=== PATIENT | female | born 1965 | race Caucasian/White ===

== ENCOUNTER 2018-06-21 13:38 | Emergency (ER) | payer SELFPAY ==
[2018-06-21 13:48] VITALS: BP 122/80; PULSE 70; TEMP 97.8; BMI 25.4
[2018-06-21] MEDS ORDERED: KETOROLAC TROMETHAMINE 15 MG/ML VIAL IM ONE (14:19)
[2018-06-21] MEDS ORDERED: KETOROLAC TROMETHAMINE 15 MG/ML VIAL ONE (14:21)
--- NOTE | 2018-06-21 14:30 | PDOC ---
History of Present Illness - General Chief Complaint: Back Pain Stated Complaint: LOWER BACK PAIN Time Seen by Provider: 06/21/18 13:53 History Source: Patient Exam Limitations: No Limitations - History of Present Illness Initial Comments: 06/21/18 14:38 53 yo F w/ a h/o lumbar arthritis comes in c/o exacerbation of her chronic low back pain for the past 2 days. It feels similar to the back pain which she has had in the past. It sometimes radiates to both legs, no numbness/tingling anywhere, no other complaints today, no saddle paresthesias, no incontinence, no h/o malignancy, no recent trauma/fall, no CP, no SOB, no abdominal pain, no fever/chills, no NVD. She took motrin at 8am which helped but she would like the injection. She does not have health insurance, therefore is unable to follow up with a PMD. Past History - Past Medical History Allergies/Adverse Reactions: Allergies Allergy/AdvReac Type Severity Reaction Status Date / Time morphine Allergy Vomiting Verified 06/21/18 13:40 Home Medications: Ambulatory Orders Docusate Sodium [Colace -] 300 mg PO DAILY #90 capsule 05/23/13 Cyclobenzaprine HCl [Flexeril -] 10 mg PO TID #21 tablet 10/18/13 Naproxen [Naprosyn -] 500 mg PO BID #14 tablet 10/18/13 Methocarbamol [Robaxin-750] 750 mg PO TID 3 Days #15 tablet 06/21/18 Naproxen [Naprosyn] 500 mg PO BID 3 Days #15 tablet 06/21/18 COPD: No - Suicide/Smoking/Psychosocial Hx Smoking History: Smoker current status UNK Hx Alcohol Use: Yes (SOCIAL) Review of Systems - Review of Systems Able to Perform ROS?: Yes Constitutional: No: Chills, Fever, Malaise, Night Sweats HEENTM: No: Eye Pain, Recent change in vision, Throat Pain Respiratory: No: Cough, Shortness of Breath Cardiac (ROS): No: Chest Pain, Palpitations, Chest Tightness ABD/GI: No: Diarrhea, Nausea, Vomiting, Abdominal cramping : No: Dysuria, Hematuria Musculoskeletal: Yes: Back Pain Integumentary: No: Rash Neurological: No: Headache, Numbness, Dizziness Psychiatric: No: Change in Appetite Endocrine: No: Unexplained Weight Loss *Physical Exam - Vital Signs Last Vital Signs Temp Pulse Resp BP Pulse Ox 97.8 F 70 16 122/80 100 06/21/18 13:43 06/21/18 13:43 06/21/18 13:43 06/21/18 13:43 06/21/18 13:43 - Physical Exam General Appearance: Yes: Nourished. No: Apparent Distress HEENT: positive: SRIKANTH, Normal ENT Inspection, Normal Voice. negative: Pale Conjunctivae, Scleral Icterus (R), Scleral Icterus (L) Neck: positive: Supple. negative: Decreased range of motion, Tender midline Respiratory/Chest: positive: Lungs Clear, Normal Breath Sounds. negative: Respiratory Distress, Accessory Muscle Use Cardiovascular: positive: Regular Rhythm, Regular Rate Gastrointestinal/Abdominal: positive: Normal Bowel Sounds, Soft. negative: Tender Musculoskeletal: positive: Normal Inspection, Other (Back without assymetry,no skin changes, no midline tenderness, bilateral diffuse low back musculoskeletal tenderness. FROM, good reflexes bilaterally, good LE pulses, FROM and 5/5 strength LEs. GOod cap refill, full sensory function, NVI). negative: CVA Tenderness, Decreased Range of Motion Extremity: positive: Normal Capillary Refill, Normal Inspection, Normal Range of Motion. negative: Tender, Pedal Edema Integumentary: positive: Normal Color, Dry. negative: Jaundice, Rash Neurologic: positive: Fully Oriented, Alert, Normal Mood/Affect Moderate Sedation - Procedure Monitoring Vital Signs: Procedure Monitoring Vital Signs Temperature 97.8 F 06/21/18 13:43 Pulse Rate 70 06/21/18 13:43 Respiratory Rate 16 06/21/18 13:43 Blood Pressure 122/80 06/21/18 13:43 O2 Sat by Pulse Oximetry (%) 100 06/21/18 13:43 ED Treatment Course - Medications Given in the ED: ED Medications Discontinued Medications Generic Name Dose Route Start Last Admin Trade Name Freq PRN Reason Stop Dose Admin Ketorolac Tromethamine 15 mg 06/21/18 14:19 06/21/18 14:24 Toradol Injection - IM 06/21/18 14:20 15 mg ONCE ONE Administration Medical Decision Making - Medical Decision Making 06/21/18 14:42 53 yo F w/ exacerbation of her low back pain, asking for toradol, NO neuro deficits. WIll not give robaxin here because she is driving, will give a prescription. Pt ambulating out of ED in NAD, without the need for assistance. Return for worsening/concerning symptoms. Pt verbalizes understanding and agrees with plan *DC/Admit/Observation/Transfer Diagnosis at time of Disposition: Back pain Qualifiers: Back pain location: low back pain Chronicity: unspecified Back pain laterality : unspecified Sciatica presence: without sciatica Qualified Code(s): M54.5 - Low back pain - Discharge Dispostion Disposition: HOME Condition at time of disposition: Stable - Prescriptions Prescriptions: Methocarbamol [Robaxin-750] 750 mg PO TID 3 Days #15 tablet Naproxen [Naprosyn] 500 mg PO BID 3 Days #15 tablet - Referrals - Patient Instructions Printed Discharge Instructions: DI for Low Back Pain Additional Instructions: DO not take Robaxin when operating any kind of machinery because it might make you drowsy. You may take it with naproxen. Return for worsening/concerning symptoms. - Post Discharge Activity
== END 2018-06-21 14:35 | disposition home or self-care (01) ==
LOC: JERFT 13:38 → JER 13:38 → JERFT 14:35
PROC: 3E0233Z Introduction of Anti-inflammatory into Muscle, Percutaneous Approach (ICD-10-PCS; principal; 2018-06-21)
DX: M54.5 Low back pain (principal)
CPT/HCPCS: 99281-25

== ENCOUNTER 2018-08-10 14:21 | Emergency (ER) | payer SELFPAY ==
[2018-08-10 14:40] VITALS: TEMP 98.2; BMI 25.4
--- NOTE | 2018-08-10 14:53 | PDOC ---
History of Present Illness - General Chief Complaint: Vaginal Bleeding Stated Complaint: VAGAINAL BLEEDING Time Seen by Provider: 08/10/18 14:51 - History of Present Illness Initial Comments: 53yo A1 with history of tubal ligation presenting with vaginal bleeding. Patient reports that her last menstrual period was at the end of last month. This vaginal bleeding corresponds with the expected start of her menstrual period. Endorses abdominal cramping which is consistent with pain she has had during menstruation in the past. Patient states she finished a course of amoxicillin yesterday which she was given after a dental procedure. No personal or family history of bleeding disorders. She states the females in her family usually experience menopause around age 55. Patient has had mood swings, but no hot flashes. Has had negative pap smears. No history of ovarian cysts or fibroids. Denies fevers or chills. PCP: none leasing sales consultant: none Past History - Past Medical History Allergies/Adverse Reactions: Allergies Allergy/AdvReac Type Severity Reaction Status Date / Time morphine Allergy Vomiting Verified 08/10/18 14:40 Home Medications: Ambulatory Orders Docusate Sodium [Colace -] 300 mg PO DAILY #90 capsule 05/23/13 Cyclobenzaprine HCl [Flexeril -] 10 mg PO TID #21 tablet 10/18/13 Naproxen [Naprosyn -] 500 mg PO BID #14 tablet 10/18/13 Methocarbamol [Robaxin-750] 750 mg PO TID 3 Days #15 tablet 06/21/18 Naproxen [Naprosyn] 500 mg PO BID 3 Days #15 tablet 06/21/18 COPD: No - Suicide/Smoking/Psychosocial Hx Smoking History: Never smoked Hx Alcohol Use: Yes (SOCIAL) Review of Systems - Review of Systems Comments:: Constitutional: no fever, no chills HEENT: no throat pain, no dysphagia Cardiovascular: no chest pain, no palpitations Respiratory: no cough, no shortness of breath Gastrointestinal: no nausea, no vomiting Genitourinary: no dysuria, +vaginal bleeding Musculoskeletal: no myalgia, no arthralgia Skin: no rash, no itching Neurologic: no headache, no weakness *Physical Exam - Vital Signs Last Vital Signs Temp Pulse Resp BP Pulse Ox 98.2 F 97 H 18 140/90 99 08/10/18 14:36 08/10/18 14:36 08/10/18 14:36 08/10/18 14:36 08/10/18 14:36 - Physical Exam Comments: General: Awake, alert, and fully oriented, in no acute distress Head: No signs of trauma Eyes: EOMI, sclera anicteric ENT: Moist mucus membranes Neck: Normal ROM, supple Lungs: Lungs clear, Normal breath sounds Cardio: Regular rhythm, S1 and S2 present Abdomen: Soft, nontender. No guarding, no rebound, no masses Extremities: Normal range of motion, Distal pulses present SKIN: Warm, Dry, normal turgor Neurologic: Cranial nerves II through XII grossly intact. Normal speech Pelvic: External genitalia without erythema, exudate or discharge. Vaginal vault is with blood. No clots or tissue noted. Cervix is of normal color without lesion. The os is closed. Uterus is noted to be of appropriate size and nontender. No cervical motion tenderness is seen. No masses are palpated. The adnexa are without masses or tenderness. ED Treatment Course - LABORATORY CBC & Chemistry Diagram: 08/10/18 16:06 Medical Decision Making - Medical Decision Making 53yo A1 with history of tubal ligation presenting with vaginal bleeding. DDX including but not limited to heavy menstruation due to hormonal changes during menopause, fibroids, vaginal trauma, malignancy CBC to check hemoglobin Ultrasound 600mg motrin for analgesia 08/10/18 15:59 CBC WBC 7.4 K/mm3 (4.0-10.0) 08/10/18 16:06 RBC 3.87 M/mm3 (3.60-5.2) 08/10/18 16:06 Hgb 11.8 GM/dL (10.7-15.3) 08/10/18 16:06 Hct 34.4 % (32.4-45.2) 08/10/18 16:06 MCV 89.0 fl (80-96) 08/10/18 16:06 MCH 30.5 pg (25.7-33.7) 08/10/18 16:06 MCHC 34.2 g/dl (32.0-36.0) 08/10/18 16:06 RDW 14.4 % (11.6-15.6) 08/10/18 16:06 Plt Count 311 K/MM3 (134-434) 08/10/18 16:06 MPV 7.9 fl (7.5-11.1) 08/10/18 16:06 Absolute Neuts (auto) 4.8 K/mm3 (1.5-8.0) 08/10/18 16:06 Neutrophils % 64.7 % (42.8-82.8) 08/10/18 16:06 Lymphocytes % 27.3 % (8-40) 08/10/18 16:06 Monocytes % 5.1 % (3.8-10.2) 08/10/18 16:06 Eosinophils % 2.3 % (0-4.5) 08/10/18 16:06 Basophils % 0.6 % (0-2.0) 08/10/18 16:06 Nucleated RBC % 0 % (0-0) 08/10/18 16:06 No anemia or leukocytosis TVUS: "Real time examination of the pelvis utilizing both the transabdominal and transvaginal probes demonstrates the following: The uterus is normal in size measuring 10.5 x 7.6 x 6.8 cm. No uterine masses are seen. A thickened endometrium of 1.5 cm is identified. A nabothian cyst is noted within the cervix. The ovaries are normal in size and texture with cysts identified bilaterally. The right ovarian cyst measures 1.9 x 1.8 x 0.9 cm. The left ovarian cyst measures 2.2 x 2.1 x 1.5 cm. There is no evidence of adnexal masses or free pelvic fluid collections. IMPRESSION: Thickened endometrium and bilateral ovarian cysts. " Fibroids not seen on ultrasound. Heavy vaginal bleeding likely due to menstruation likely affected by variable hormonal levels during this likely perimenopausal period. Patient amenable to follow-up with drill doctor referral *DC/Admit/Observation/Transfer Diagnosis at time of Disposition: Heavy menstrual bleeding Qualifiers: Menorrahagia type: with regular cycle Qualified Code(s): N92.0 - Excessive and frequent menstruation with regular cycle - Discharge Dispostion Disposition: HOME Condition at time of disposition: Stable - Referrals Referrals: [facility] [place] [facility] [place] [Provider Group] Eleazar Roberts MD [Staff Physician] - Dodie Dumont MD [Staff Physician] - Marilin Guerra DO [Staff Physician] - - Patient Instructions Printed Discharge Instructions: DI for Vaginal Bleeding Additional Instructions: You were seen in the Emergency Department for vaginal bleeding. Blood work was within normal limits. Ultrasound shows that you have cysts. Follow-up with an drill doctor this week to further workup your heavy bleeding. Beryl Castanon [address] [address] Medical: We have also referred you to a primary care provider as you do not have one right now. Return to the Emergency Department if you experience: -heavy bleeding (more than two pads per hour for two hours) -severe pain -lightheadedness -shortness of breath -high fever -any other concerning symptoms - Post Discharge Activity
[2018-08-10] MEDS ORDERED: IBUPROFEN 600 MG TABLET (FP) PO ONE ×2 (15:51→16:06)
--- NOTE | 2018-08-10 16:10 | PDOC ---
Documentation entered by Angel Jaramillo SCRIBE, acting as scribe for Theodora Herrera MD. Theodora Herrera MD: This documentation has been prepared by the premaibe, Angel Jaramillo SCRIBE, under my direction and personally reviewed by me in its entirety. I confirm that the documentation accurately reflects all work, treatment, procedures, and medical decision making performed by me. Attending Attestation - Resident Resident Name: Theodora Moseley - ED Attending Attestation I have performed the following: I have examined & evaluated the patient, The case was reviewed & discussed with the resident, I agree w/resident's findings & plan, Exceptions are as noted - HPI HPI: 08/10/18 16:32 The patient is a 53 year old female(A1) with a significant past medical history of lumbar arthritis who presents to the emergency department with vaginal bleeding for 3 days. The patient states that she experienced her lmp around the same time last month but this time the bleeding is heavier than usual. The patient states that she has used about 3 large pads today. She reports some associated abdominal pain , consistent with her period. 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 She denies any other symptoms or complaints. - Physicial Exam PE: GENERAL: Awake, alert, and fully oriented, in no acute distress HEAD: No signs of trauma EYES: PERRLA, EOMI, sclera anicteric, conjunctiva clear ENT: Auricles normal inspection, hearing grossly normal, nares patent, oropharynx clear without exudates. Moist mucosa NECK: Normal ROM, supple, no lymphadenopathy, JVD, or masses LUNGS: Breath sounds equal, clear to auscultation bilaterally. No wheezes, and no crackles HEART: Regular rate and rhythm, normal S1 and S2, no murmurs, rubs or gallops ABDOMEN: Soft, nontender, normoactive bowel sounds. No guarding, no rebound. No masses EXTREMITIES: Normal range of motion, no edema. No clubbing or cyanosis. No cords, erythema, or tenderness NEUROLOGICAL: Cranial nerves II through XII grossly intact. Normal speech, normal gait. Motor and sensation intact SKIN: Warm, Dry, normal turgor, no rashes or lesions noted. - Medical Decision Making Pt is uninsured, does not have any followup. DDx includes fibroid, adenomyosis, DUB, poss hormonal changes as she nears menopause. Will obtain CBC and sono. Referral to [facility].
[2018-08-10 16:23] LABS: BASO % 0.6 % (0-2.0); EOS % 2.3 % (0-4.5); HEMATOCRIT 34.4 % (32.4-45.2); HEMOGLOBIN 11.8 GM/dL (10.7-15.3); LYMPH % 27.3 % (8-40); MCH 30.5 pg (25.7-33.7); MCHC 34.2 g/dl (32.0-36.0); MEAN PLT VOLUME 7.9 fl (7.5-11.1); MONO % 5.1 % (3.8-10.2); NEUT % 64.7 % (42.8-82.8); PLATELET COUNT 311 K/MM3 (134-434); RBC 3.87 M/mm3 (3.60-5.2); RDW 14.4 % (11.6-15.6); WHITE BLOOD COUNT 7.4 K/mm3 (4.0-10.0)
[2018-08-10 18:16] VITALS: BP 142/92; PULSE 79
== END 2018-08-10 18:16 | disposition home or self-care (01) ==
LOC: JER 14:21
DX: N92.0 Excessive and frequent menstruation with regular cycle (principal); N94.6 Dysmenorrhea, unspecified
CPT/HCPCS: 36415; 76830-TC; 85025; 99282-25

== ENCOUNTER 2020-01-24 17:41 | Emergency (ER) | payer OTHER ==
[2020-01-24 17:49] VITALS: BP 186/83; PULSE 71; TEMP 97.4; BMI 25.4
[2020-01-24] MEDS ORDERED: KETOROLAC TROMETHAMINE 30 MG/1 ML VIAL IM ONE (18:24)
--- NOTE | 2020-01-24 18:32 | PDOC ---
History of Present Illness - General Chief Complaint: Back Pain Stated Complaint: BACK PAIN Time Seen by Provider: 01/24/20 18:12 History Source: Patient Exam Limitations: No Limitations - History of Present Illness Initial Comments: 01/24/20 18:28 54-year-old female history of hypertension, lumbar spine disc herniation presents complaining of right-sided low back pain radiating to right lower extremity (behind the knee) which began at approximately noon today after pulling a window open. Denies direct trauma, numbness, tingling, urinary incontinence, bowel incontinence, fever or any other complaint. Took acetaminophen at approximately noon without relief. ROS: as above PE: GENERAL: well-appearing, NAD HEAD: NCAT EYES: Pupils equal, round and reactive to light, sclera anicteric, conjunctiva clear ENT: pharynx: no erythema, no exudate, uvula midline NECK: supple CHEST: nontender RESP: clear, no w/r/r CARDIO: rrr, no m/g/r ABD: +BS, soft, nontender, non distended BACK: no midline spinal ttp, L5-S1 paraspinal tenderness to palpation EXTREMITIES: Normal range of motion, 5/5 strength and sensation NEUROLOGICAL: Normal speech, ambulating slowly SKIN: Warm, Dry Is this a multiple visit Asthma Patient?: No Past History - Medical History Allergies/Adverse Reactions: Allergies Allergy/AdvReac Type Severity Reaction Status Date / Time morphine Allergy Vomiting Verified 01/24/20 17:48 Home Medications: Ambulatory Orders Docusate Sodium [Colace -] 300 mg PO DAILY #90 capsule 05/23/13 Cyclobenzaprine HCl [Flexeril -] 10 mg PO TID #21 tablet 10/18/13 Naproxen [Naprosyn -] 500 mg PO BID #14 tablet 10/18/13 Methocarbamol [Robaxin-750] 750 mg PO TID 3 Days #15 tablet 06/21/18 Naproxen [Naprosyn] 500 mg PO BID 3 Days #15 tablet 06/21/18 Cyclobenzaprine HCl 10 mg PO TID PRN 5 Days #12 tablet 01/24/20 COPD: No HTN: Yes - Psycho-Social/Smoking History Smoking History: Never smoked *Physical Exam - Vital Signs Last Vital Signs Temp Pulse Resp BP Pulse Ox 97.4 F L 71 18 186/83 H 100 01/24/20 17:45 10/11/20 17:45 01/24/20 17:45 01/24/20 17:45 01/24/20 17:45 Medical Decision Making - Medical Decision Making 01/24/20 18:31 54-year-old female history of hypertension, lumbar spine disc herniation presents complaining of right-sided low back pain radiating to right lower extremity (behind the knee) which began at approximately noon today after pulling a window open. Denies direct trauma, numbness, tingling, urinary incontinence, bowel incontinence, fever or any other complaint. Took acetaminophen at approximately noon without relief. Toradol 30 mg IM Prescription for cyclobenzaprine 10 mg every 8 hours as needed Reassess 01/24/20 18:57 Pain slightly improved Stable for discharge Return precautions discussed Discharge - Discharge Information Problems reviewed: Yes Clinical Impression/Diagnosis: Back pain Qualifiers: Back pain location: low back pain Chronicity: unspecified Back pain laterality: left Sciatica presence: with sciatica Sciatica laterality: sciatica of right side Qualified Code(s): M54.41 - Lumbago with sciatica, right side Condition: Stable Disposition: HOME - Admission No - Additional Discharge Information Prescriptions: Cyclobenzaprine HCl 10 mg PO TID PRN 5 Days #12 tablet PRN Reason: Back Pain - Follow up/Referral - Patient Discharge Instructions Additional Instructions: Alternate between acetaminophen 975 and ibuprofen 600 mg every 6 hours as needed for pain Take cyclobenzaprine 10 mg 1 tablet every 8 hours as needed Follow-up with your doctor this week Return to ED if inability to walk, urinary incontinence, bowel incontinence, fever or any other concerning symptoms - Post Discharge Activity Work/Back to School Note: Back to Work
--- OUTSIDE RECORDS SUMMARY | 2020-01-24 18:33 | XMS ---
:1965 [facility] Team Providers Name Role Phone Helga Reese Unavailable Re-disclosure Warning The records that you are about to access may contain information from federally- assisted alcohol or drug abuse programs. If such information is present, then the following federally mandated warning applies: This information has been disclosed to you from records protected by federal confidentiality rules (42 CFR part 2). The federal rules prohibit you from making any further disclosure of this information unless further disclosure is expressly permitted by the written consent of the person to whom it pertains or as otherwise permitted by 42 CFR part 2. A general authorization for the release of medical or other information is NOT sufficient for this purpose. The Federal rules restrict any use of the information to criminally investigate or prosecute any alcohol or drug abuse patient.The records that you are about to access may contain highly sensitive health information, the redisclosure of which is protected by Article 27-F of the [facility] Public Health law. If you continue you may haveaccess to information: Regarding HIV / AIDS; Provided by facilities licensed or operated by the [facility] Office of Mental Health; or Provided by the [facility] Office for People With Developmental Disabilities. If such information is present, then the following [facility] mandated warning applies: This information has been disclosed to you from confidential records which are protected by state law. State law prohibits you from making any further disclosure of this information without the specific written consent of the person to whom it pertains, or as otherwise permitted by law. Any unauthorized further disclosure in violation of state law may result in a fine or senior care sentence or both. A general authorization for the release of medical or other information is NOT sufficient authorization for further disclosure. Encounters Encounter Providers Location Date Indications Data Source(s ) Outpatient [facility] 02/10/2019 eCW3 ([facility] 12:[facility] - [facility]) 02/10/2019 12:00:00 AM EDT Outpatient [facility] 01/08/2019 eCW3 ([facility] 12:[facility]T - Care) 01/08/2019 12:00:00 AM EDT Outpatient [facility] 12/24/2018 eCW3 ([facility] 12:00:00 [facility]T - Care) 12/24/2018 12:00:00 AM EDT Outpatient<td Attender: Helga Castanon 12/12/2018 ISIDORO MADERA ([facility] ID="encounterTyp [facility] 03:47:00 Antonio eDescriptionID0" [facility] PM EDT - [place] >PATIENT 12/12/2018 [facility]) ADVOCACY</td><td 11:59:00 >Helga PM EDT [facility]</td><td> [facility]</td><td>0 12/12/2018</td><t d></td> Outpatient [facility] 11/27/2018 eCW3 ([facility] 12:00:00 [facility]T - Care) 11/27/2018 12:00:00 AM EDT Medications Medication Brand Start Product Dose Route Administrative Pharmacy [facility] Indications Reaction Description Data Name Date Form Instructions Instructions Source(s) Hydrochloro Hydroc .0 active Hydroch lorot eCW3 thiazide hlorot 2018 {tabl hiazide 12.5 ([place] 12.5 MG hiazid 12:00: et_in MG [facility] Oral Tablet e 12.5 00 AM _the_ Heal th MG EST morni Care) ng} Losartan Losart .0 active Losartan e CW3 Potassium an 2019 {tabl Potassium (Hud son 100 MG Oral Potass 12:00: et} 100 MG Ri rubi Tablet ium 00 AM Health 100 MG EST Care) Losartan [facility] .0 active Losartan e CW3 Potassium an 2019 {tabl Potassium (Hud son 100 MG Oral Potass 12:00: et} 100 MG Ri rubi Tablet ium 00 AM Health 100 MG EST Care) [facility] Losartan e CW3 Potassium an 2019 {tabl Potassium (Hud son 100 MG Oral Potass 12:00: et} 100 MG Ri rubi Tablet ium 00 AM Health 100 MG EST Care) Hydrochloro Hydroc .0 active Hydroch lorot eCW3 thiazide hlorot 2019 {tabl hiazide 12.5 ([place] 12.5 MG hiazid 12:00: et_in MG [facility] Oral Tablet e 12.5 00 AM _the_ Heal th MG EST morni Care) ng} Losartan [facility] .0 active Losartan e CW3 Potassium an 2019 {tabl Potassium (Hud son 100 MG Oral Potass 12:00: et} 100 MG Ri rubi Tablet ium 00 AM Health 100 MG EST Care) Hydrochloro Hydroc .0 active Hydroch lorot eCW3 thiazide hlorot 2019 {tabl hiazide 12.5 ([place] 12.5 MG hiazid 12:00: et_in MG [facility] Oral Tablet e 12.5 00 AM _the_ Heal th MG EST morni Care) ng} Hydrochloro Hydroc .0 active Hydroch lorot eCW3 thiazide hlorot 2019 {tabl hiazide 12.5 ([place] 12.5 MG hiazid 12:00: et_in MG [facility] Oral Tablet e 12.5 00 AM _the_ Heal th MG EST morni Care) ng} Blood Blood 02/10/ active Blood eCW3 Pressure - Pressu 2019 Pressure - ( [place] re - 12:00: [facility] 00 AM Health EDT Care) Blood Blood 02/10/ active Blood eCW3 Pressure - Pressu 2019 Pressure - ( [place] re - 12:00: [facility] 00 AM Health EDT Care) Blood Blood 02/10/ active Blood eCW3 Pressure - Pressu 2019 Pressure - ( [place] re - 12:00: [facility] 00 AM Health EDT Care) Blood Blood 02/10/ active Blood eCW3 Pressure - Press2018 Pressure - ( [place] re - 12:00: [facility] 00 AM Health EDT Care) Insurance Providers Payer name Policy type Policy ID Covered Covered constitution party's Policy P alyssa / Coverage constitution party ID relationship to [employer] ormation type yung CANCER [id number] SP [id number] SERVICE PROGRAM SELF PAY SP INSURANCE Problems, Conditions, and Diagnoses Code Display Name Description Problem Type Effective Dates Data Source(s) I10 Essential (primary) Essential Problem 11/27/2018 eCW3 ([place] hypertension (primary) 12:00:00 AM EDT [facility] hypertension Care) Results ID Date Data Source [id number] 12/12/2018 03:58:35 PM EDT ULICES Fernandez (Brigido Alvarez [id number] [facility]) Name Value Range Interpretation Description Data Source(s ) Supporting Code Document(s ) No Results No Results No Results JANINE ([facility] Recorded For Antonio Specified [facility]) Procedure Vital Signs ID Date Data Source UNK Name Value Range Interpretation Code Description Data Source(s) Diastolic blood 90 mm[Hg] 90 mm[Hg] eCW3 ([facility]) Systolic blood 148 mm[Hg] 148 mm[Hg] eCW3 ([facility]) Body temperature 97.9 [degF] 97.9 [degF] eCW3 ( [facility]) Heart rate 20 /min 20 /min eCW3 ([facility]) Body mass index 26.75 kg/m2 26.75 kg/m2 eCW3 ([facility] (BMI) [Ratio] [facility]) Body weight 137 [lb_av] 137 [lb_av] eCW3 ([facility]) Body height 60 [in_i] 60 [in_i] eCW3 ([facility]) Diastolic blood 94 mm[Hg] 94 mm[Hg] eCW3 ([facility]) Systolic blood 167 mm[Hg] 167 mm[Hg] eCW3 ([facility]) Body temperature 98.3 [degF] 98.3 [degF] eCW3 ( [facility]) Heart rate 20 /min 20 /min eCW3 ([facility]) Body mass index 26.36 kg/m2 26.36 kg/m2 eCW3 ([facility] (BMI) [Ratio] [facility]) Body weight 135 [lb_av] 135 [lb_av] eCW3 ([facility]) Body height 60 [in_i] 60 [in_i] eCW3 ([facility]) Diastolic blood 92 mm[Hg] 92 mm[Hg] eCW3 ([facility]) Systolic blood 158 mm[Hg] 158 mm[Hg] eCW3 ([facility]) Body temperature 98.7 [degF] 98.7 [degF] eCW3 ( [facility]) Heart rate 20 /min 20 /min eCW3 ([facility]) Body mass index 26.56 kg/m2 26.56 kg/m2 eCW3 ([facility] (BMI) [Ratio] [facility]) Body weight 136 [lb_av] 136 [lb_av] eCW3 ([facility]) Body height 60.0 [in_i] 60.0 [in_i] eCW3 ([facility]) Diastolic blood 88 mm[Hg] 88 mm[Hg] eCW3 ([facility]) Systolic blood 194 mm[Hg] 194 mm[Hg] eCW3 ([facility]) Body temperature 99.6 [degF] 99.6 [degF] eCW3 ( [facility]) Heart rate 20 /min 20 /min eCW3 ([facility]) Body mass index 26.60 kg/m2 26.60 kg/m2 eCW3 ([facility] (BMI) [Ratio] [facility]) Body weight 136.2 136.2 [lb_av] eCW3 ([facility] [lb_av[facility]) Body height 60.0 [in_i] 60.0 [in_i] eCW3 ([facility]) Patient Treatment Plan of Care Planned Activity Planned Date Details Description Data Source (s) Hydrochlorothiazide 12.5 MG 03/10/2019 eCW3 ([place] [facility] Tablet 12:00:00 AM [facility]) Losartan Potassium 100 MG 03/10/2019 eC W3 ([place] [facility] Tablet 12:00:00 AM [facility]) Hydrochlorothiazide 12.5 MG 03/10/2019 eCW3 ([place] [facility] Tablet 12:00:00 AM [facility]) Losartan Potassium 100 MG 03/10/2019 eC W3 ([place] [facility] Tablet 12:00:00 AM [facility]) Hydrochlorothiazide 12.5 MG 03/10/2019 eCW3 ([place] [facility] Tablet 12:00:00 AM [facility]) Losartan Potassium 100 MG 03/10/2019 eC W3 ([place] [facility] Tablet 12:00:00 AM [facility]) Hydrochlorothiazide 12.5 MG 03/10/2019 eCW3 ([place] [facility]t 12:00:00 AM [facility]) Losartan Potassium 100 MG 03/10/2019 eC W3 ([place] [facility] Tablet 12:00:00 AM [facility])
[2020-01-24] MEDS ORDERED: KETOROLAC TROMETHAMINE 30 MG/1 ML VIAL ONE (18:39)
== END 2020-01-24 19:08 | disposition home or self-care (01) ==
LOC: JERFT 17:41
PROC: 3E0233Z Introduction of Anti-inflammatory into Muscle, Percutaneous Approach (ICD-10-PCS; principal; 2020-01-24)
DX: M54.41 Lumbago with sciatica, right side (principal)
CPT/HCPCS: 99284-25

== ENCOUNTER 2020-07-10 11:54 | Emergency (ER) | payer OTHER ==
[2020-07-10 12:13] VITALS: BP 185/95; PULSE 72; BMI 24.5
[2020-07-10 12:14] VITALS: TEMP 98.1
[2020-07-10] MEDS ORDERED: LIDOCAINE 5% TOPICAL PATCH TP ONE (12:49)
[2020-07-10] MEDS ORDERED: KETOROLAC TROMETHAMINE 60 MG/2 ML VIAL IM ONE (12:49)
[2020-07-10] MEDS ORDERED: LIDOCAINE 5% TOPICAL PATCH ONE (13:00)
[2020-07-10] MEDS ORDERED: KETOROLAC TROMETHAMINE 30 MG/1 ML VIAL ONE (13:00)
== END 2020-07-10 13:11 | disposition home or self-care (01) ==
LOC: JER 11:54
PROC: 3E0233Z Introduction of Anti-inflammatory into Muscle, Percutaneous Approach (ICD-10-PCS; principal; 2020-07-10)
DX: M54.5 Low back pain (principal)
CPT/HCPCS: 99284-25

== ENCOUNTER 2020-09-25 10:54 | Emergency (ER) | payer OTHER ==
[2020-09-25 10:59] VITALS: BP 152/88; PULSE 91; TEMP 97; BMI 25.4
[2020-09-25] MEDS ORDERED: LIDOCAINE 5% TOPICAL PATCH TP ONE (11:29)
[2020-09-25] MEDS ORDERED: LIDOCAINE 5% TOPICAL PATCH ONE (11:29)
[2020-09-25] MEDS ORDERED: KETOROLAC TROMETHAMINE 30 MG/1 ML VIAL IM ONE (11:31)
[2020-09-25] MEDS ORDERED: KETOROLAC TROMETHAMINE 30 MG/1 ML VIAL ONE (11:32)
== END 2020-09-25 11:55 | disposition home or self-care (01) ==
LOC: JERFT 10:54
PROC: 3E0233Z Introduction of Anti-inflammatory into Muscle, Percutaneous Approach (ICD-10-PCS; principal; 2020-09-25)
DX: M54.5 Low back pain (principal)
CPT/HCPCS: 99284-25

== ENCOUNTER 2023-06-29 12:24 | Emergency (ER) | payer OTHER ==
[2023-06-29 12:28] VITALS: BP 158/94; PULSE 76; RESP 18; TEMP 97.6; BMI 23.1
[2023-06-29] MEDS ORDERED: LIDOCAINE 4% PATCH TP ONE (13:16)
[2023-06-29] MEDS ORDERED: ACETAMINOPHEN 500 MG TABLET (FP) ONE (13:16)
[2023-06-29] MEDS ORDERED: KETOROLAC TROMETHAMINE 30 MG/1 ML VIAL ONE (13:16)
[2023-06-29] MEDS: LIDOCAINE 4% PATCH TP ONE (13:21)
[2023-06-29] MEDS: KETOROLAC TROMETHAMINE 30 MG/1 ML VIAL IM ONE (13:21)
[2023-06-29] MEDS: ACETAMINOPHEN 500 MG TABLET (FP) PO ONE (13:21)
[2023-06-29] MEDS ORDERED: LIDOCAINE PATCH REMOVAL MC SCH (22:00)
== END 2023-06-29 13:54 | disposition home or self-care (01) ==
LOC: JERFT 12:24
PROC: 3E0233Z Introduction of Anti-inflammatory into Muscle, Percutaneous Approach (ICD-10-PCS; principal; 2023-06-29)
DX: M54.50 Low back pain, unspecified (principal); M25.511 Pain in right shoulder
CPT/HCPCS: 99284-25